=== PATIENT | female | born 1960 | race Caucasian/White ===

== ENCOUNTER → 2018-12-25 | Day surgery (SDC) | payer OTHER ==
[~2018-12-25] VITALS: Ht 157.5 cm; Wt 76.2 kg
== END | disposition home or self-care (01) ==
LOC: SUR 06:40 → EEVIPCON 09:15
PROVIDERS: ATTEND Urology
DX: N81.10 Cystocele, unspecified (principal); R31.9 Hematuria, unspecified; R91.8 Other nonspecific abnormal finding of lung field; R60.9 Edema, unspecified; J90 Pleural effusion, not elsewhere classified; J98.11 Atelectasis; I51.7 Cardiomegaly; Z53.8 Procedure and treatment not carried out for other reasons
CPT/HCPCS: 71045

== ENCOUNTER 2019-03-05 06:25 | Inpatient (IN) | payer OTHER ==
[~2019-03-05] VITALS: Ht 157.5 cm; Wt 79.1 kg
[2019-03-05] MEDS ORDERED: ceFAZolin 1GM VL ONE (11:29)
[2019-03-05] MEDS ORDERED: LIDOCAINE W/ EPINEPHRINE 1 % INJ 30ML ONE (11:29)
[2019-03-05] MEDS ORDERED: CONJ ESTROGENS 0.625MG/GM VAG CRM 30GM PV ONE (11:29)
[2019-03-05] MEDS ORDERED: SUCCINYLCHOLINE CHLORIDE 20 MG/ML 10ML VIAL IV ONE (11:39)
[2019-03-05] MEDS ORDERED: CIPROFLOXACIN 400MG/200ML 200 ML IV ONE (11:40)
[2019-03-05] MEDS ORDERED: ROCURONIUM 10MG/ML 10ML VIAL IV ONE (11:40)
[2019-03-05] MEDS ORDERED: MIDAZOLAM HCL 1MG/1ML-2 ML VIAL ONE (11:45)
[2019-03-05] MEDS ORDERED: PROPOFOL 10 MG/ML 20 ML IV ONE (11:45)
[2019-03-05] MEDS ORDERED: MEPERIDINE HCL (25 MG/ML) 1ML VIAL ONE (11:45)
[2019-03-05] MEDS ORDERED: DexAMETHasone SOD PHOS 10MG/1ML VIAL INJ ONE (12:46)
[2019-03-05] MEDS ORDERED: ONDANSETRON HCL 4 MG/2 ML VIAL ONE (12:47)
[2019-03-05] MEDS ORDERED: NITROGLYCERIN 0.4 MG SL TAB SL PRN (14:00)
[2019-03-05] MEDS ORDERED: ceFAZolin 1GM/50ML 50 ML IV SCH (14:00)
[2019-03-05] MEDS ORDERED: MORPHINE SULF INJ 2 MG/ML SYRINGE 1ML IV PRN (14:00)
[2019-03-05] MEDS ORDERED: HYDROmorphone HCL 2 MG/ML VL ONE (14:13)
[2019-03-05] MEDS: HYDROmorphone HCL 2 MG/ML VL IV PRN ×2 (14:14→14:29)
--- NOTE | 2019-03-05 18:45 | NUR ---
PACU recovery admit, after SBAR report received. S/P cystocele , patient alert and oriented x4. admitted to room 209. Vital signs taken, surgical site assessed for redness, swelling, or bleeding. Patient instructed on need to inform staff immediately for any pain, swelling/bleeding . Patient verbalized understanding . Bed at lowest locked position , siderails up x2 and call light at bedside. Will continue to monitor.
--- NOTE | 2019-03-05 19:39 | NUR ---
OPENING NOTES RECEIVED REPORT FROM DAY SHIFT NURSEKIESHA. PT IS ALERT, AWAKE AND ORIENTATED X 4 WITH NO S/S OF DISTRESS NOR PAIN. NO S/S OF SOB. PT IS S/P TRANSVAGINAL CYSTOCELECTOMY WITH SACROPEXY. NO VAGINAL BLEEDING NOR SWELLING. GUARD IS AT BEDSIDE. BED BRAKES ARE LOCKED AND CALL LIGHT IS WITH IN REACH. BED IS IN LOWEST POSITION AND SIDE RAILS ARE UP X 2. HOB IS 30 DEGREES. DUMONT CATHETER SECURE, DRAINING, AND BELOW BLADDER. WILL MONITOR Q 1HR.
[2019-03-05 22:00] VITALS: BP 127/51
[2019-03-05] MEDS ORDERED: ZOLPIDEM TARTRATE 5 MG TAB PO PRN (22:15)
[2019-03-05] MEDS ORDERED: MORPHINE SULFATE 4 MG/ML SYR/VIAL IV PRN (22:15)
[2019-03-05] MEDS ORDERED: ONDANSETRON HCL 4 MG/2 ML VIAL IV PRN (22:15)
[2019-03-06 05:00] VITALS: BP 119/64
[2019-03-06 05:25] LABS: Basophils # (auto) 0 uL; Basophils % (auto) 0.3 % (0.0-2.0); Eosinophils # (auto) 0 uL; Hematocrit 39.6 % (36.0-46.0); Hemoglobin 13.4 g/dL (12.2-16.2); Lymphocytes % (auto) 8.7 % (10.0-50.0); Mean Corpuscular Hemoglobin 31.3 pg (28.0-32.0); Mean Corpuscular Hgb Conc. 33.7 g/dL (32.0-36.0); Monocytes # (auto) 0.6 uL; Monocytes % (auto) 4.7 % (0.0-12.0); Neutrophils # (auto) 10.2 uL; Neutrophils % (auto) 86.3 % (37.0-80.0); Nucleated Red Blood Cells % 0.1 %; Platelet Count (auto) 308 10^3/uL (140-450); Red Blood Cells 4.26 10^6/uL (4.0-5.20); Red Cell Distribution Width 13.1 % (11.8-14.3); White Blood Cell 11.8 10^3/uL (4.4-10.8)
--- NOTE | 2019-03-06 06:31 | NUR ---
Martinez Cath Order to discontinue martinez catheter. Martinez dc'd with clean technique following deflation of balloon. Patient tolerated well with no complaints of pain. Per MD Syed orders, vaginal packing removed. Packing intact with sanguineous fluid. No foul odor noted.
--- NOTE | 2019-03-06 07:37 | NUR ---
closing notes endorsed care to day shift nurseCary.
[2019-03-06 09:00] VITALS: BP 120/69
[2019-03-06] MEDS ORDERED: ENOXAPARIN SOD 40 MG/0.4 ML SYRINGE SC SCH (10:00)
--- NOTE | 2019-03-06 13:00 | NUR ---
Discharge instructions given as ordered. Encourage to follow up with PMD as instructed. All questions and concerns addressed. Patient verbalized understanding. Medication reconciliation form completed and copy given to patient. IV removed with catheter intact, pressure dressing applied. [employer]GARCANE RESEARCH TECHNICIAN AT BEDSIDE. PER PT, NO RX WAS GIVEN TO HER. TAVON GUILLEN MD.
--- NOTE | 2019-03-06 13:07 | NUR ---
PAGED RE: PRESCRIPTION PER MD'S DISCHARGE NOTE, RX WAS GIVEN TO PT. BOTH PATIENT AND SCAFFOLD ERECTOR DENIES RECEIVING THE PRESCRIPTION. Addendum: 03/06/19 at 1311 by Cary Mcfarlane RN MESSAGE LEFT WITH ANSWERING SERVICE. WAITING FOR CALL BACK.
--- NOTE | 2019-03-06 14:00 | NUR ---
SPOKE TO CAROL CAIN. PER PAYTON, THE RX SHOULD HAVE ALREADY BEEN GIVEN TO PT PRE-OP.
--- NOTE | 2019-03-06 14:15 | NUR ---
SPOKE TO PT AND MANAGER EMPLOYEE RELATIONS AND THEY BOTH DENIED RECEIVING A PRESCRIPTION PRE-OP. INFORMED THEM THAT PER CAROL CAIN, PT WILL NOT NEED AN ANTIBIOTIC BUT RX WILL BE FOR PAIN MEDICATION. WILL PAGED AGAIN AND ASK TO FAX ANY PRESCRIPTION TO THE LONG TERM FACILITY PER GUARD'S REQUEST. I ALSO INFORMED PT THAT SHE NEEDS TO HAVE A UROLOGY APPOINTMENT FOLLOW-UP WHICH I CAN SET UP FOR HER BUT PT'S TRANSPORTATION IS CURRENTLY WAITING OUTSIDE AND GUARD STATED THAT THEY WILL CALL AND MAKE THAT APPPOINTMENT.
--- NOTE | 2019-03-06 14:40 | NUR ---
PAGED UROLOGIST. MESSAGE LEFT WITH ANSWERING SERVICE. WAITING FOR CALLB BACK.
--- NOTE | 2019-03-06 15:07 | NUR ---
SPOKE TO PAYTON. UPDATE GIVEN. PER PAYTON, IF PT HAD ALREADY LEFT AND NEEDS PAIN MEDICATION, ALF PHYSICIAN WILL BE ABLE TO GIVE HER PAIN MEDICATION. OTHERWISE, THEY CAN FAX A PRESCRIPTION TO ALF.
== END 2019-03-06 14:00 | DRG 748 ==
LOC: SUR 06:25 → EEVIPCON 06:26 → TELE-CENTR 06:26
PROVIDERS: ADMIT Urology; ATTEND Internal Medicine
PROC: 0JQC0ZZ Repair Pelvic Region Subcutaneous Tissue and Fascia, Open Approach (ICD-10-PCS; principal; 2019-03-05 11:43)
DX: N81.10 Cystocele, unspecified (principal); J44.9 Chronic obstructive pulmonary disease, unspecified; I10 Essential (primary) hypertension; B19.20 Unspecified viral hepatitis C without hepatic coma; Z82.5 Family history of asthma and other chronic lower respiratory diseases; Z90.710 Acquired absence of both cervix and uterus; Z79.899 Other long term (current) drug therapy; Z87.891 Personal history of nicotine dependence; Z86.73 Personal history of transient ischemic attack (TIA), and cerebral infarction without residual deficits
CPT/HCPCS: 36415; 85025; G0378; J0330; J0690; J1100; J2250; J2405; J2704